=== PATIENT | male | born 1990 | race Caucasian/White ===

== ENCOUNTER → 2016-10-01 | Day surgery (SDC) | payer OTHER ==
[~2016-10-01] MED LIST: ACETAMINOPHEN 1000 MG/100 ML VIAL IV ONE; BUPIVACAINE/EPINEPHRINE 0.25% PF 10 ML VIAL ONE; KETOROLAC TROMETHAMINE 30 MG/ML (IVP) VIAL IV PUSH ONE; LACTATED RINGER'S 1000 ML INJ 1,000 ML ONE; MIDAZOLAM HCL 2 MG/2 ML VIAL ONE; MORPHINE SULFATE 4 MG/ML INJ ONE; ONDANSETRON HCL 4 MG/2 ML VIAL IV PUSH ONE; PROPOFOL 200 MG/20 ML AMP IV ONE; Z.0.NO CURRENT MEDS; ceFAZolin 2 GM PREMIX 50 ML ONE; oxyCODONE/ACETAMINOPHEN 5 MG/325 MG TAB ONE
--- NOTE | 2016-10-01 10:57 | TN ---
cc: GUY RODRIGUEZ MD DATE OF SURGERY: 10/01/2016 PREOPERATIVE DIAGNOSIS Left inguinal hernia. POSTOPERATIVE DIAGNOSIS Left inguinal hernia. PROCEDURE Laparoscopic repair of left inguinal hernia with mesh. SURGEON Guy Rodriguez [employer] Staff. SPECIMEN None. ESTIMATED BLOOD LOSS 5 cc. COMPLICATIONS None apparent. ANESTHESIA General LMA. OPERATIVE FINDINGS The patient had a moderate size direct left inguinal hernia. He did not have an indirect inguinal hernia. The repair was uncomplicated. PROCEDURE IN DETAIL The patient was taken to the operating room, placed in supine position. General anesthesia via LMA was induced. The abdomen was prepped and draped in usual sterile fashion. A surgical timeout was performed to verify correct patient, procedure and site. Appropriate perioperative antibiotics were administered. After infiltration with local anesthetic a 1 cm incision was made inferior and just to the left of the umbilicus. Blunt dissection was carried out down to the underlying fascia and the anterior rectus fascia to the left of the midline was vertically incised. The posterior rectus space was developed bluntly. The dissecting balloon was inserted down to the pubis and the balloon dissector inflated. The structural balloon was then placed in the retrorectus space and the space insufflated to 11 mmHg with CO2 gas. The camera was placed. The pubis, Lamberto's ligament, epigastric vessels and the rectus muscle were all identified. A 5 mm port was placed in the suprapubic area and another in the lower midline. The patient was placed in Trendelenburg position. Attention was turned to the left inguinal area. The lateral space was developed taking care to avoid lateral nerves. The spermatic cord structures were identified. There did not appear to be a true indirect inguinal hernia. However, the peritoneum was dissected farther cephalad carefully. Medially there was a moderate size direct inguinal hernia evidenced by pseudo sac. There was no current incarceration of any structures. Lamberto's ligament was also visible. A 15 x 15 cm Ultrapro Advanced mesh was cut to 12 x 15 cm and placed in the left inguinal area. This was positioned and secured at Lamberto's ligament anteriorly, at superior rectus muscle laterally above the area of the lateral nerves and also just lateral to the epigastrics along the anterior abdominal wall. There was good coverage of the entire inguinal floor, especially noting good coverage of the direct space. At this point the inguinal area was allow to desufflate and trocars were removed. The anterior rectus fascia was closed with a running 2-0 Vicryl suture. Skin was closed with subcuticular 4-0 Monocryl as well as Dermabond. The patient tolerated the procedure well and was extubated and taken to PACU in stable condition. MD CAROLINE Cash/SABRINA /9:41 AM /10:38 AM
== END | disposition home or self-care (01) ==
LOC: ESDC 06:55
PROVIDERS: ATTEND Surgery
DX: K40.90 Unilateral inguinal hernia, without obstruction or gangrene, not specified as recurrent (principal)
CPT/HCPCS: 00840; 49650; C1727; C1781; J0131; J0690; J1885; J2250; J2270; J2405; J3010; J7120

== ENCOUNTER 2017-05-14 13:34 | Emergency (ER) | payer OTHER ==
[~2017-05-14] VITALS: Ht 167.6 cm; Wt 65.0 kg
[~2017-05-14 13:34] MED LIST changes: -ACETAMINOPHEN 1000 MG/100 ML VIAL IV ONE; -BUPIVACAINE/EPINEPHRINE 0.25% PF 10 ML VIAL ONE; -KETOROLAC TROMETHAMINE 30 MG/ML (IVP) VIAL IV PUSH ONE; -LACTATED RINGER'S 1000 ML INJ 1,000 ML ONE; -MIDAZOLAM HCL 2 MG/2 ML VIAL ONE; -MORPHINE SULFATE 4 MG/ML INJ ONE; -ONDANSETRON HCL 4 MG/2 ML VIAL IV PUSH ONE; -PROPOFOL 200 MG/20 ML AMP IV ONE; -ceFAZolin 2 GM PREMIX 50 ML ONE; -oxyCODONE/ACETAMINOPHEN 5 MG/325 MG TAB ONE
[2017-05-14 13:40] VITALS: BP 126/73; PULSE 103; RESP 20; O2SAT 96
--- NOTE | 2017-05-14 13:49 | PD ---
HPI . Heroin ingestion Chief Complaint: OD/ Ingestion Time Seen by Provider: 13:42 Travel History International Travel<30 days: No Contact w/Intl Traveler<30days: No Traveled to known affect area: No History of Present Illness HPI Patient presents by [facility] concerned that he has overdosed on heroin. He states that he snorted heroin approximately noon time. He states that he is very tired and is concerned that he is going to . He denies any IV drug use. He denies any coingestions. This patient was not administered Narcan or any other medications by [facility]. SEVERITY: Severe DURATION: 2 hours TIMING: Continuous CONTEXT: Illicit drug use (heroine) ASSOCIATED SYMPTOMS: Feels like he is going to PFSH Past Medical History ADD: Yes ADHD: No Cancer: No Diabetes: No Diminished Hearing: No Inguinal Hernia: Yes (left ) Psychiatric: Yes (add) Immunizations Current: Yes Migraines: No Seizures: No Thyroid Disease: No Ulcer: No Past Surgical History Appendectomy: No Cholecystectomy: No Other Surgery: Yes (hernia repair ) Social History Alcohol Use: No Tobacco Use: Yes (1 PPD) Substance Use: Yes (heroine ) Allergies-Medications (Allergen,Severity, Reaction): Coded Allergies: Sulfa (Sulfonamide Antibiotics) (Unverified Allergy, Severe, 03/08/17) sulfisoxazole (Unverified Allergy, Severe, 03/08/17) Reported Meds & Prescriptions Reported Meds & Active Scripts Active Review of Systems Except as stated in HPI: all other systems reviewed are Neg Psychiatric: Positive: Substance Abuse, No: Suicidal Ideations Physical Exam Narrative GENERAL: This patient is awake and alert and answering questions appropriately. SKIN: Warm and dry. No rash or lesions. HEAD: Normocephalic/atraumatic. EYES: Pupils are equal. Extraocular movements are intact. NECK: Full range of motion with no apparent pain. CARDIOVASCULAR: Normal sinus rhythm. Rate is in the 90s. RESPIRATORY: Nonlabored respirations. Sats are in the upper 90s. MUSCULOSKELETAL: Atraumatic. NEUROLOGICAL: A and O 3. Cranial nerves are intact. Moving all 4 extremities equally. PSYCHIATRIC: Appropriate mood and affect. Data Data Last Documented VS Vital Signs Date Time Temp Pulse Resp B/P (MAP) Pulse Ox O2 Delivery O2 Flow Rate FiO2 05/14/17 16:10 98.5 76 18 122/77 (92) 98 Orders Orders Complete Blood Count With Diff (05/14/17 13:42) Basic Metabolic Panel (Bmp) (05/14/17 13:42) Drug Screen, Random Urine (05/14/17 13:42) Alcohol (Ethanol) (05/14/17 13:42) Ondansetron Inj (Zofran Inj) (05/14/17 14:15) Sodium Chlor 0.9% 1000 Ml Inj (Ns 1000 M (05/14/17 15:30) Labs Laboratory Tests Test 05/14/17 13:50 White Blood Count 16.4 TH/MM3 Red Blood Count 5.60 MIL/MM3 Hemoglobin 16.0 GM/DL Hematocrit 48.1 % Mean Corpuscular Volume 85.9 FL Mean Corpuscular Hemoglobin 28.6 PG Mean Corpuscular Hemoglobin Concent 33.3 % Red Cell Distribution Width 14.3 % Platelet Count 188 TH/MM3 Mean Platelet Volume 9.6 FL Neutrophils (%) (Auto) 82.1 % Lymphocytes (%) (Auto) 10.7 % Monocytes (%) (Auto) 6.9 % Eosinophils (%) (Auto) 0.2 % Basophils (%) (Auto) 0.1 % Neutrophils # (Auto) 13.4 TH/MM3 Lymphocytes # (Auto) 1.8 TH/MM3 Monocytes # (Auto) 1.1 TH/MM3 Eosinophils # (Auto) 0.0 TH/MM3 Basophils # (Auto) 0.0 TH/MM3 CBC Comment DIFF FINAL Differential Comment Blood Urea Nitrogen 18 MG/DL Creatinine 1.15 MG/DL Random Glucose 139 MG/DL Calcium Level 9.0 MG/DL Sodium Level 138 MEQ/L Potassium Level 4.6 MEQ/L Chloride Level 105 MEQ/L Carbon Dioxide Level 28.0 MEQ/L Anion Gap 5 MEQ/L Estimat Glomerular Filtration Rate 76 ML/MIN Ethyl Alcohol Level LESS THAN 3 MG/DL MDM Medical Decision Making Medical Screen Exam Complete: Yes Emergency Medical Condition: Yes Differential Diagnosis Differential diagnosis includes but is not limited to substance abuse, overdose , anxiety Narrative Course Patient presents concerned that he is going to after using heroin. We will observe him for a period of time. 3:20 PM Patient remains awake and alert. He has vomited. He has not yet given us a urine for a drug screen. The patient is giving the nurse a hard time. He is insisting that he be allowed to drink. Were given him IV fluids and he has had some ice chips. However, he was vomiting earlier. This patient was here for concerns about a heroin overdose. He has remained awake and alert and is becoming verbally abusive. He does not have any evidence of impending respiratory failure. Therefore, he will be discharged. Diagnosis Primary Impression: Heroin abuse Additional Impression: Vomiting Qualified Codes: R11.11 - Vomiting without nausea Scripts No Active Prescriptions or Reported Meds Disposition: 01 DISCHARGE HOME Condition: Stable Georgie Cervantes MD May 14, 2017 13:49
[2017-05-14] MEDS ORDERED: ONDANSETRON HCL 4 MG/2 ML VIAL IV PUSH ONE (14:15)
[2017-05-14 14:16] LABS: AUTOMATED NEUTROPHIL # 13.4 TH/MM3 (1.8-7.7); BASOPHIL % 0.1 % (0.0-2.0); EOSINOPHIL % 0.2 % (0.0-4.0); HEMATOCRIT 48.1 % (39.0-51.0); LYMPH % 10.7 % (9.0-44.0); LYMPHOCYTE # 1.8 TH/MM3 (1.0-4.8); MEAN CELL VOLUME 85.9 FL (80.0-100.0); MEAN CORPUSCULAR HEMOGLOBIN 28.6 PG (27.0-34.0); MEAN CORPUSCULAR HGB CONC 33.3 % (32.0-36.0); MEAN PLATELET VOLUME 9.6 FL (7.0-11.0); MONO % 6.9 % (0.0-8.0); MONOCYTE # 1.1 TH/MM3 (0-0.9); NEUT % 82.1 % (16.0-70.0); PLATELET COUNT 188 TH/MM3 (150-450); RED CELL DISTRIBUTION WIDTH 14.3 % (11.6-17.2); WHITE BLOOD COUNT 16.4 TH/MM3 (4.0-11.0)
[2017-05-14 14:26] LABS: BLOOD UREA NITROGEN 18 MG/DL (7-18); CHLORIDE 105 MEQ/L (98-107); CREATININE 1.15 MG/DL (0.60-1.30); GLOMERULAR FILTRATION RATE 76 ML/MIN (>89); GLUCOSE,RANDOM 139 MG/DL (74-106); SODIUM (NA) 138 MEQ/L (136-145)
[2017-05-14] MEDS ORDERED: SODIUM CHLOR 0.9% 1000 ML INJ 1,000 ML IV ONE (15:30)
[2017-05-14 16:10] VITALS: BP 122/77; PULSE 76; RESP 18; TEMP 98.5; O2SAT 98
== END 2017-05-14 16:51 | disposition home or self-care (01) ==
LOC: NEPE 13:34
DX: F11.10 Opioid abuse, uncomplicated (principal)
CPT/HCPCS: 80048; 80307; 85025; 96361; 96374; 99284; J2405; J7030